=== PATIENT | female | born 1985 | race Asian ===

== ENCOUNTER 2019-06-27 14:11 | Emergency (ER) | payer MEDICAID ==
[~2019-06-27] VITALS: Ht 160 cm; Wt 56.2 kg
[2019-06-27 14:17] VITALS: BP 123/78; Ht 160 cm; Wt 56.2 kg
== END 2019-06-27 15:07 | disposition home or self-care (01) ==
LOC: ED 14:11
DX: S39.92XA Unspecified injury of lower back, initial encounter (principal); W06.XXXA Fall from bed, initial encounter; Y93.89 Activity, other specified; Y92.89 Other specified places as the place of occurrence of the external cause; Y99.8 Other external cause status